=== PATIENT | male | born 1985 | race Hispanic/Latino ===

== ENCOUNTER 2023-02-21 07:23 | Emergency (ER) | payer SELFPAY ==
[2023-02-21] MEDS ORDERED: LIDOCAINE 1% MPF 5 ML VIAL ONE (07:36)
[2023-02-21] MEDS ORDERED: DOXYCYCLINE 100 MG CAP PO ONE (08:10)
[2023-02-21] MEDS ORDERED: TETANUS & DIPHTHERIA TOX,ADULT 0.5 ML VIAL ONE (08:11)
[2023-02-21] MEDS ORDERED: MUPIROCIN 2% OINT 22GM TUBE TOP ONE (08:11)
--- NOTE | 2023-02-21 08:12 | EDPHYS ---
Physician Documentation [facility] Name: Ilir Anguinao Age: 37 yrs Sex: Male : 1985 Arrival Date: 02/21/2023 Time: 07:23 Bed 6 Private MD: SAMANTA Physician Mikel Hung HPI: 02/21 08:00 This 37 yrs old Male presents to ER via Ambulatory with complaints of Fish michael Hook in finger. 08:00 The patient or guardian reports pain. The complaints affect the PIP of right little michael finger. Context: [place] cause, HOOK. Onset: The symptoms/episode began/occurred just prior to arrival. Modifying factors: The symptoms are alleviated by holding still, the symptoms are aggravated by movement. Associated signs and symptoms: The patient has no apparent associated signs or symptoms. The patient has not experienced similar symptoms in the past. Historical: - Allergies: 07:35 No Known Allergies; vg1 - Home Meds: 07:35 None [Active]; vg1 - PMHx: 07:35 None; vg1 - PSHx: 07:35 None; vg1 - Immunization history:: Client reports receiving the 2nd dose of the Covid vaccine. - Social history:: Smoking status: Patient denies any tobacco usage or history of. - Family history:: not pertinent. ROS: 08:00 Constitutional: Negative for fever, chills, and weight loss, Eyes: Negative for injury, michael pain, redness, and discharge, ENT: Negative for injury, pain, and discharge, Neck: Negative for injury, pain, and swelling, Cardiovascular: Negative for chest pain, palpitations, and edema, Respiratory: Negative for shortness of breath, cough, wheezing, and pleuritic chest pain, Abdomen/GI: Negative for abdominal pain, nausea, vomiting, diarrhea, and constipation, Back: Negative for injury and pain, : Negative for injury, bleeding, discharge, and swelling, Skin: Negative for injury, rash, and discoloration, Neuro: Negative for headache, weakness, numbness, tingling, and seizure, Psych: Negative for depression, anxiety, suicide ideation, homicidal ideation, and hallucinations, Allergy/Immunology: Negative for hives, rash, and allergies, Endocrine: Negative for neck swelling, polydipsia, polyuria, polyphagia, and marked weight changes, Hematologic/Lymphatic: Negative for swollen nodes, abnormal bleeding, and unusual bruising. 08:00 MS/extremity: Positive for injury or acute deformity, decreased range of motion, pain. Exam: 08:00 Constitutional: This is a well developed, well nourished patient who is awake, alert, michael and in no acute distress. Head/Face: Normocephalic, atraumatic. Eyes: Pupils equal round and reactive to light, extra-ocular motions intact. Lids and lashes normal. Conjunctiva and sclera are non-icteric and not injected. Cornea within normal limits. Periorbital areas with no swelling, redness, or edema. ENT: Nares patent. No nasal discharge, no septal abnormalities noted. Tympanic membranes are normal and external auditory canals are clear. Oropharynx with no redness, swelling, or masses, exudates, or evidence of obstruction, uvula midline. Mucous membranes moist. Neck: Trachea midline, no thyromegaly or masses palpated, and no cervical lymphadenopathy. Supple, full range of motion without nuchal rigidity, or vertebral point tenderness. No Meningismus. Chest/axilla: Normal chest wall appearance and motion. Nontender with no deformity. No lesions are appreciated. Cardiovascular: Regular rate and rhythm with a normal S1 and S2. No gallops, murmurs, or rubs. Normal PMI, no JVD. No pulse deficits. Respiratory: Lungs have equal breath sounds bilaterally, clear to auscultation and percussion. No rales, rhonchi or wheezes noted. No increased work of breathing, no retractions or nasal flaring. Abdomen/GI: Soft, non-tender, with normal bowel sounds. No distension or tympany. No guarding or rebound. No evidence of tenderness throughout. Back: No spinal tenderness. No costovertebral tenderness. Full range of motion. Male : Normal genitalia with no discharge or lesions. Skin: Warm, dry with normal turgor. Normal color with no rashes, no lesions, and no evidence of cellulitis. Neuro: Awake and alert, GCS 15, oriented to person, place, time, and situation. Cranial nerves II-XII grossly intact. Motor strength 5/5 in all extremities. Sensory grossly intact. Cerebellar exam normal. Normal gait. Psych: Awake, alert, with orientation to person, place and time. Behavior, mood, and affect are within normal limits. 08:00 Musculoskeletal/extremity: ROM: full active range of motion, full passive range of motion, limited active range of motion due to pain, limited passive range of motion due to pain, Circulation is intact in all extremities. the PIP of right little finger Compartment Syndrome exam of affected extremity: is normal. Joints: All joints appear normal with full range of motion. Tendon exam: specific tendon testing normal through active and passive range of motion Vital Signs: 07:33 BP 151 / 92; Pulse 77; Resp 16; Temp 98.1; Pulse Ox 100% ; Weight 72.57 kg; Height 5 vg1 ft. 7 in. ; Pain 6/10; 08:39 BP 119 / 87; Pulse 65; Resp 14; Pulse Ox 99% ; vg1 07:33 Body Mass Index 25.06 (72.57 kg, 170.18 cm) 1 07:33 Pain Scale: Adult vg1 Procedures: 08:05 Foreign Body Removal: a fishhook, from the right by incising to remove, using lidocaine [facility] 1% with epinephrine to anesthesize the area, Dressinx4s were used to dress the wound, The patient tolerated the removal well. MDM: 07:28 Patient medically screened. [facility] 08:06 Differential diagnosis: closed fracture, contusion, abrasion. Data reviewed: vital [facility] signs, nurses notes, radiologic studies, plain films. Consideration of Admission/Observation Escalation of care including admission/observation considered. I considered the following discharge prescriptions or medication management in the emergency department Medications were administered in the Emergency Department. See MAR. Test considered but Not performed: Labs: NO LABS. Care significantly affected by the following chronic conditions: NONE. 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 Exp: 03/14/2024. vg1 Lot #: [id number]. } Route: IM; Site: right deltoid; 08:40 Follow up: Response: No adverse reaction vg1 Disposition Summary: 02/21/23 08:11 Discharge Ordered Location: Home michael Problem: new michael Symptoms: have improved michael Condition: Stable michael Diagnosis - Puncture wound with foreign body of finger without damage to nail - HOOK REMOVED michael Followup: michael - With: Private Physician - When: 2 - 3 days - Reason: Recheck today's complaints, Continuance of care, Re-evaluation by your physician Discharge Instructions: - Discharge Summary Sheet michael - Puncture Wound michael - Puncture Wound, [id number] [facility] Forms: - Medication Reconciliation Form michael - Thank You Letter michael - Antibiotic Education michael - Prescription Opioid Use [facility] Prescriptions: - Centany 2 % Topical ointment - apply 1 application by TOPICAL route 4 times per day; 15 gram; Refills: 0, michael Product Selection Permitted - acetaminophen-codeine 300-60 mg Oral tablet - take 2 tablet by ORAL route every 6 hours; 20 tablet; Refills: 0, Product [facility] Selection Permitted - Doxycycline Hyclate 100 mg Oral Tablet - take 1 tablet by ORAL route every 12 hours; 20 tablet; Refills: 0, Product [facility] Selection Permitted Signatures: Dispatcher [employer] Mikel Cason MD MD cha Garcia, Victoria, RN RN vg1
--- NOTE | 2023-02-21 08:12 | ER ---
Nurse's Notes [facility] Name: Ilir Anguiano Age: 37 yrs Sex: Male : 1985 Arrival Date: 02/21/2023 Time: 07:23 Bed 6 Private MD: Diagnosis: Puncture wound with foreign body of finger without damage to nail-HOOK REMOVED Presentation: 02/21 07:33 Chief complaint: Patient states: "its a new hook" Fish hook in Right fifth digit, vg1 appears to be swollen, no bleeding. Coronavirus screen: Vaccine status: Patient reports receiving the 2nd dose of the covid vaccine. Client denies travel out of the [place] in the last 14 days. Ebola Screen: Patient negative for fever greater than or equal to 101.5 degrees Fahrenheit, and additional compatible Ebola Virus Disease symptoms Patient denies exposure to infectious person. Patient denies travel to an Ebola-affected area in the 21 days before illness onset. Initial Sepsis Screen: Does the patient meet any 2 criteria? No. Patient's initial sepsis screen is negative. Does the patient have a suspected source of infection? No. Patient's initial sepsis screen is negative. Risk Assessment: Do you want to hurt yourself or someone else? Patient reports no desire to harm self or others. Onset of symptoms was February 21, 2023. 07:33 Method Of Arrival: Ambulatory 1 07:33 Acuity: ERIN 4 vg1 Triage Assessment: 07:35 General: Appears in no apparent distress. comfortable, Behavior is calm, cooperative. vg1 Pain: Complains of pain in dorsal aspect of middle phalanx of right little finger Pain currently is 6 out of 10 on a pain scale. Musculoskeletal: Circulation, motion, and sensation intact. Swelling present in dorsal aspect of middle phalanx of right little finger and dorsal aspect of proximal phalanx of right little finger. Historical: - Allergies: 07:35 No Known Allergies; vg1 - Home Meds: 07:35 None [Active]; vg1 - PMHx: 07:35 None; vg1 - PSHx: 07:35 None; vg1 - Immunization history:: Client reports receiving the 2nd dose of the Covid vaccine. - Social history:: Smoking status: Patient denies any tobacco usage or history of. - Family history:: not pertinent. Screenin:[facility] Fall Risk Assessment (Adult) History of falling in the last 3 months, vg1 including since admission No falls in past 3 months (0 pts). Abuse screen: Denies threats or abuse. Denies injuries from another. Nutritional screening: No deficits noted. Tuberculosis screening: No symptoms or risk factors identified. Assessment: 07:36 Reassessment: SEE TRIAGE. vg1 Vital Signs: 07:33 BP 151 / 92; Pulse 77; Resp 16; Temp 98.1; Pulse Ox 100% ; Weight 72.57 kg; Height 5 vg1 ft. 7 in. ; Pain 6/10; 08:39 BP 119 / 87; Pulse 65; Resp 14; Pulse Ox 99% ; vg1 07:33 Body Mass Index 25.06 (72.57 kg, 170.18 cm) vg1 07:33 Pain Scale: Adult vg1 ED Course: 07:26 Patient arrived in ED. mr 07:28 Mikel Hung MD is Attending Physician. michael 07:33 Princess Duenas, RN is Primary Nurse. vg1 07:35 Triage completed. vg1 07:35 Arm band placed on. vg1 07:36 Patient has correct armband on for positive identification. Bed in low position. Call vg1 light in reach. 08:16 No provider procedures requiring assistance completed. Patient did not have IV access vg1 during this emergency room visit. 08:31 Hand Right 3 View XRAY In Process Unspecified. 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 Exp: 03/14/2024. vg1 Lot #: [id number]. } Route: IM; Site: right deltoid; 08:40 Follow up: Response: No adverse reaction vg1 Medication: 08:16 Vaccine Information Statement (VIS) provided today. Questions and/or concerns vg1 addressed. VIS edition date: May 10, 2021. Outcome: 08:11 Discharge ordered by . michael 08:39 Discharged to home ambulatory, with family. vg1 08:39 Condition: good 08:39 Discharge instructions given to patient, Instructed on discharge instructions, follow up and referral plans. medication usage, Demonstrated understanding of instructions, follow-up care, medications, Prescriptions given X 3. 08:40 Patient left the ED. vg1 Signatures: Dispatcher [employer] Mikel Cason MD MD cha Rivera, Mary mr Garcia, Victoria, RN RN vg1
[2023-02-21 08:45] VITALS: TEMP 98.1
[2023-02-21 08:47] VITALS: BP 119/87; O2SAT 99
--- NOTE | 2023-02-21 09:11 | RAD REPORT ---
EXAM DESCRIPTION: RAD - Hand Right 3 View - 02/21/2023 8:30 am CLINICAL HISTORY: Right hand pain status post injury FINDINGS: No fracture or dislocation is seen. Radiopaque foreign body not seen
== END 2023-02-21 08:40 | disposition home or self-care (01) ==
LOC: ER 07:23
PROC: 0HCFXZZ Extirpation of Matter from Right Hand Skin, External Approach (ICD-10-PCS; principal; 2023-02-21)
DX: S61.246A Puncture wound with foreign body of right little finger without damage to nail, initial encounter (principal)
CPT/HCPCS: 90714; J2001